=== PATIENT | female | born 1930 | race Caucasian/White ===

== ENCOUNTER → 2016-11-22 | Outpatient (CLI) | payer MEDICARE, BC ==
--- NOTE | 2016-11-22 22:26 | HKNOTE ---
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 The pain in her left groin is "now quite severe." She has to advance to "events" to attend, 1 in December and 1 in February. She requests cortisone injections. PHYSICAL EXAMINATION: GENERAL: The patient is a fit-looking 86-year-old female. VITAL SIGNS: Height is 5 feet 7 inches, weight 168 pounds, blood pressure 180/90, temperature 98.3. LEFT HIP: Marked limitation of movement of the left hip on account of groin pain. IMAGING: X-rays of the left hip obtained today at the [facility] were reviewed. These show marked narrowing of the left hip joint space. MANAGEMENT: The patient states that she knows she is going to need to have a hip replacement operat ion, but she has "2 events to go to in the next 2 months. She would like to have a cortisone inject ion instead." MANAGEMENT: Under sterile conditions, the patient was given injection of 2 mL of Kenalog and 6 mL o f 2% lidocaine into the left hip joint space. She had immediate and complete relief of her groin pa in. She will be seen again in just before she goes on her next "event trip." Dictated By: WENCESLAO SAINI/TR Conf#: [id number] DID#: [id number]
== END | disposition home or self-care (01) ==
LOC: HKI 15:02
DX: M16.12 Unilateral primary osteoarthritis, left hip (principal)
CPT/HCPCS: 20610; G0463

== ENCOUNTER → 2017-02-06 | Outpatient (CLI) | payer MEDICARE, BC ==
--- NOTE | 2017-03-14 04:10 | HKNOTE ---
DATE OF SERVICE: 02/06/2017 MAIN COMPLAINT: The patient was last seen by me on November 22. She was diagnosed as having severe arthritis of her left hip. She was given a cortisone injection into the hip joint. The cortisone injection gave her a great deal of relief. She requests that I give her a repeat injection because she is not ready to consider hip replacement yet at this time. PHYSICAL EXAMINATION: Physical examination today is unchanged since the last visit. VITAL SIGNS: Blood pressure is 160/70, temperature 98.5. PROCEDURE: Under sterile conditions, she was given an injection of 2 cc of Kenalog with 6 cc of 2 percent lidocaine into the left hip joint, and she will be seen again as necessary. Dictated By: Aldo Pandey MD /[email or web address] /Document#: [id number]
== END | disposition home or self-care (01) ==
LOC: HKI 14:34
DX: M13.852 Other specified arthritis, left hip (principal)
CPT/HCPCS: 20610; G0463

== ENCOUNTER → 2017-05-29 | Outpatient (CLI) | payer MEDICARE, BC ==
--- NOTE | 2017-05-30 10:27 | HKNOTE ---
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 She is a candidate for left hip replacement. She comes in requesting repeat cortisone injection into the hip . She is not yet ready to have surgery on the hip. She gets great relief from the cortisone inject ions and she is requesting repeat injection. PHYSICAL EXAMINATION: There is quite marked stiffness of the left hip, with quite severe pain at th e limits of motion. IMAGING: The last x-rays of the left hip shows severe arthritis. MANAGEMENT: Under sterile conditions, the patient was given injection of 2 mL of Kenalog and 10 mL of 2% lidocaine into the hip joint. Note that the pain relief was not as complete I would expect fr om the anesthetic 5 mL of Kenalog, so a further 1 mL was injected into the hip joint, and this time there was complete relief of the pain. She will be seen again as necessary for further treatment. Dictated By: WENCESLAO SAINI/TR Conf#: [id number] DID#: [id number]
== END | disposition home or self-care (01) ==
LOC: HKI 10:49
DX: M16.12 Unilateral primary osteoarthritis, left hip (principal)
CPT/HCPCS: 20610; G0463

== ENCOUNTER → 2017-12-28 | Outpatient (CLI) | END | disposition home or self-care (01) ==

== ENCOUNTER → 2018-03-04 | Outpatient (CLI) | END | disposition home or self-care (01) ==

== ENCOUNTER → 2018-03-11 | Outpatient (CLI) | END | disposition home or self-care (01) ==

== ENCOUNTER 2018-03-21 06:20 | Inpatient (IN) | END 2018-03-24 11:35 | disposition home health service (06) | DRG 470 ==

== ENCOUNTER → 2018-04-01 | Outpatient (CLI) | END | disposition home or self-care (01) ==

== ENCOUNTER → 2018-04-22 | Outpatient (CLI) | END | disposition home or self-care (01) ==